=== PATIENT | male | born 1960 | race Caucasian/White ===

== ENCOUNTER 2017-04-10 10:37 | Emergency (ER) | payer SELFPAY ==
[~2017-04-10] VITALS: Ht 172.7 cm; Wt 81.5 kg
[2017-04-10] MEDS ORDERED: pain med PO (10:59)
[2017-04-10] MEDS ORDERED: OMEP20 PO (10:59)
[2017-04-10] MEDS ORDERED: LOSA50TA37 PO (10:59)
[2017-04-10] MEDS ORDERED: PROPARACAINE HCL 0.5% 15 ML OPHTHALMIC SOLUTION OU ONE (11:45)
[2017-04-10 12:30] VITALS: BP 126/84
== END 2017-04-10 12:58 | disposition home or self-care (01) ==
LOC: EMS 10:40
DX: T65.91XA Toxic effect of unspecified substance, accidental (unintentional), initial encounter (principal); T26.82XA Corrosions of other specified parts of left eye and adnexa, initial encounter; T26.81XA Corrosions of other specified parts of right eye and adnexa, initial encounter; K21.9 Gastro-esophageal reflux disease without esophagitis; I10 Essential (primary) hypertension; Z79.899 Other long term (current) drug therapy; Z83.3 Family history of diabetes mellitus; Z82.49 Family history of ischemic heart disease and other diseases of the circulatory system; Y93.89 Activity, other specified; Y92.89 Other specified places as the place of occurrence of the external cause; Y99.8 Other external cause status
CPT/HCPCS: 99283